=== PATIENT | male | born 1985 | race Hispanic/Latino ===

== ENCOUNTER 2018-06-04 07:16 | Emergency (ER) | payer SELFPAY ==
[2018-06-04 08:45] LABS: Absolute Lymphocytes (CBC) 1.9 K/uL (0.7-4.9); Absolute Monocytes 1.4 K/uL (0.1-1.3); Absolute Neutrophil 12.8 K/uL (1.8-8.0); Basophils % 0.4 % (0-1.3); Eosinophils % 1.6 % (0-4.4); Hematocrit 41.3 % (39.6-49.0); Lymphocytes % 11.4 % (15.3-44.8); MCH 31.5 pg (27.0-35.0); MCV 90.5 fL (80-100); MPV 11.1 fL (7.6-11.3); Monocytes % 8.5 % (3.3-12.3); RBC Red Blood Cell Count 4.57 M/uL (4.33-5.43)
--- NOTE | 2018-06-04 09:10 | RAD REPORT ---
EXAM DESCRIPTION: US - Scrotum Testicles - 06/04/2018 8:05 am CLINICAL HISTORY: left testicle swelling and pain COMPARISON: No comparisons FINDINGS: The right testicle 4.7 x 3.3 x 2.5 cm. No intratesticular masses or evidence of testicular torsion. The left testicle 4.3 x 3.1 x 2.6 cm. No intratesticular masses or evidence of testicular torsion. 9 mm left epididymal cyst. Echogenic material is present the left scrotal sac increased with Valsalva suspicious for a left ingu inal hernia. No worrisome fluid collections. IMPRESSION: No intratesticular mass or evidence of testicular torsion. Left inguinal hernia suspected.
[2018-06-04 09:13] LABS: ALT/SGPT 33 U/L (12-78); AST/SGOT 18 U/L (15-37); Albumin 3.7 g/dL (3.4-5.0); Alkaline Phosphatase 75 U/L (45-117); Amylase Level 40 U/L (25-115); BUN Blood Urea Nitrogen 10 mg/dL (7-18); Bicarbonate 26 mmol/L (21-32); Bilirubin Direct 0.3 mg/dL (0-0.2); Bilirubin Total 1.2 mg/dL (0.2-1.0); Glucose Level 88 mg/dL (74-106); Lipase 85 U/L (73-393); Potassium 3.8 mmol/L (3.5-5.1); Protein, Total 7.7 g/dL (6.4-8.2); Sodium Level 140 mmol/L (136-145)
--- NOTE | 2018-06-04 10:21 | RAD REPORT ---
EXAM DESCRIPTION: CTAbdomen Pelvis W Contrast - 06/04/2018 10:05 am CLINICAL HISTORY: Abdominal pain. left testicle pain/swelling COMPARISON: Scrotum Testicles dated 06/04/2018 TECHNIQUE: Biphasic CT imaging of the abdomen and pelvis was performed with 100 ml non-ionic IV cont rast. All CT scans are performed using dose optimization technique as appropriate and may include automated exposure control or mA/KV adjustment according to patient size. FINDINGS: The lung bases are clear. The liver, spleen, pancreas, adrenal glands and kidneys are within normal limits. No bowel obstruction, free air, free fluid or abscess. The appendix is normal. No evidence of signi ficant lymphadenopathy. No suspicious bony findings. Small fat containing left inguinal hernia. IMPRESSION: No acute intra-abdominal or pelvic finding. Small fat containing left inguinal hernia.
[2018-06-04 11:33] LABS: Urine Bacteria <20 /HPF (NONE SEEN); Urine Culture Reflex Order REFLEXED; Urine RBC <5 /HPF (NONE SEEN)
--- NOTE | 2018-06-04 11:57 | ER ---
Nurse's Notes [facility] Name: Katy Sepulveda III Age: 32 yrs Sex: Male : 1985 Arrival Date: 06/04/2018 Time: 07:19 Bed 14 Private MD: None, None Diagnosis: Inguinal hernia-Left;Urinary tract infection, site not specified Presentation: 06/04 07:24 Presenting complaint: Patient states: L testicular swelling and pain that began ss yesterday. Pt also reports burning with urination that began 2-3 days ago. Transition of care: patient was not received from another setting of care. Onset of symptoms was June 01, 2018. Risk Assessment: Do you want to hurt yourself or someone else? Patient reports no desire to harm self or others. Initial Sepsis Screen: Does the patient meet any 2 criteria? HR > 90 bpm. Does the patient have a suspected source of infection? Yes: Dysuria/Frequency/Urgency/UTI. Care prior to arrival: None. 07:24 Method Of Arrival: Ambulatory ss 07:24 Acuity: WEN 3 ss Historical: - Allergies: 07:28 No Known Drug Allergies; ss - Home Meds: 07:28 None [Active]; ss - PMHx: 07:28 None; ss - PSHx: 07:28 ankle; ss - Immunization history:: Adult Immunizations up to date. - Social history:: Smoking status: Patient uses tobacco products, smokes one-half pack cigarettes per day. - Ebola Screening: : Patient denies exposure to infectious person Patient denies travel to an Ebola-affected area in the 21 days before illness onset. Screenin:54 Abuse screen: Denies threats or abuse. Denies injuries from another. Nutritional ph screening: No deficits noted. Tuberculosis screening: No symptoms or risk factors identified. Fall Risk None identified. Assessment: 07:30 General: Appears in no apparent distress. comfortable, well groomed, Behavior is calm, ph cooperative, appropriate for age, Denies fever. Pain: Complains of pain in groin. Neuro: Level of Consciousness is awake, alert, obeys commands, Oriented to person, place, time, situation. Cardiovascular: Capillary refill < 3 seconds in bilateral fingers Patient's skin is warm and dry. Respiratory: Airway is patent Respiratory effort is even, unlabored, Respiratory pattern is regular, symmetrical. GI: Patient currently denies diarrhea, nausea, vomiting. : Reports burning with urination, pain in left scrotum. Derm: Skin is intact, is healthy with good turgor, Skin is pink, warm \T\ dry. Musculoskeletal: Circulation, motion, and sensation intact. Range of motion: intact in all extremities. 08:35 Reassessment: Patient appears in no apparent distress at this time. Patient and/or ph family updated on plan of care and expected duration. Pain level reassessed. Patient is alert, oriented x 3, equal unlabored respirations, skin warm/dry/pink. Pt resting quietly, awaiting CT scan. 10:00 Reassessment: Patient appears in no apparent distress at this time. Patient and/or ph family updated on plan of care and expected duration. Pain level reassessed. Patient is alert, oriented x 3, equal unlabored respirations, skin warm/dry/pink. 11:30 Reassessment: Patient appears in no apparent distress at this time. Patient and/or ph family updated on plan of care and expected duration. Pain level reassessed. Patient is alert, oriented x 3, equal unlabored respirations, skin warm/dry/pink. 12:52 Reassessment: Patient appears in no apparent distress at this time. Patient and/or ph family updated on plan of care and expected duration. Pain level reassessed. Patient is alert, oriented x 3, equal unlabored respirations, skin warm/dry/pink. Pt instructed to follow up w/ general surgeon and d/c home. Vital Signs: 07:24 BP 129 / 86; Pulse 106; Resp 17; Temp 97.0(TE); Pulse Ox 99% on R/A; Weight 113.4 kg; ss Height 5 ft. 10 in. (177.80 cm); Pain 8/10; 08:36 BP 118 / 78; Pulse 96; Resp 18; Pulse Ox 99% on R/A; ph 09:31 BP 114 / 68; Pulse 93; Resp 18; Pulse Ox 100% on R/A; dh3 11:00 BP 113 / 72; Pulse 91; Resp 18; Pulse Ox 99% on R/A; ph 12:30 BP 122 / 70; Pulse 87; Resp 18; Temp 97.9; Pulse Ox 99% on R/A; ph 07:24 Body Mass Index 35.87 (113.40 kg, 177.80 cm) ED Course: 07:19 Patient arrived in ED. sb2 07:19 None, None is Private Physician. sb2 07:19 Alba Alvarez, RN is Primary Nurse. ph 07:19 Jonny Mays PA is PHCP. cp 07:19 Jonny Dean MD is Attending Physician. cp 07:24 Arm band placed on right wrist. ss 07:27 Triage completed. ss 07:40 Patient taken to ultrasound. aa4 07:56 Patient has correct armband on for positive identification. Placed in gown. Bed in low ph position. Call light in reach. Side rails up X 1. Pulse ox on. NIBP on. Warm blanket given. 08:05 US Scrotum Testicles In Process Unspecified. EDMS 08:07 Ultrasound completed. Patient moved back from ultrasound. aa4 08:30 Missed attempt(s): 22 gauge in right forearm. Bleeding controlled, band aid applied, ph catheter tip intact. 08:33 Inserted saline lock: 20 gauge in right antecubital area, using aseptic technique. ph Blood collected. 10:03 CT completed. Patient tolerated procedure well. Patient moved to CT via wheelchair. Patient moved back from CT. 10:04 CT Abd/Pelvis - W/Contrast In Process Unspecified. EDMS 11:56 Kevin Hu MD is Referral Physician. cp 12:46 No provider procedures requiring assistance completed. IV discontinued, intact, ph bleeding controlled, No redness/swelling at site. Pressure dressing applied. Administered Medications: 12:44 Drug: Rocephin 1 grams Route: IV; Rate: bolus; Site: right antecubital; ph 12:45 Follow up: Response: No adverse reaction; IV Status: Completed infusion ph Outcome: 11:57 Discharge ordered by MD. cp 12:52 Patient left the ED. ph 12:52 Discharged to home ambulatory. ph 12:52 Condition: good 12:52 Discharge instructions given to patient, Instructed on discharge instructions, follow up and referral plans. medication usage, Demonstrated understanding of instructions, follow-up care, medications, Prescriptions given X 3. Signatures: Dispatcher [employer] MARTINM Myriam Torres Liana Colon aa4 Selena Childers RN RN Alba Alvarez RN RN ph PageJonny PA PA cp Herrera, Deanna 3 Shaunna Joel 2
--- NOTE | 2018-06-04 11:57 | EDPHYS ---
Physician Documentation [facility] Name: Katy Sepulveda III Age: 32 yrs Sex: Male : 1985 Arrival Date: 06/04/2018 Time: 07:19 Bed 14 Private MD: None, None ED Physician Jonny Dean HPI: 06/04 07:35 This 32 yrs old Male presents to ER via Ambulatory with complaints of Side cp Pain. 07:35 The patient presents with swelling, tenderness, that is moderate, of the left testicle, cp of the left inguinal area, urinary symptoms, dysuria. 07:35 Onset: The symptoms/episode began/occurred yesterday. Associated signs and symptoms: cp Pertinent negatives: abdominal pain, constipation, diarrhea, fever, hematuria, vomiting. Severity of symptoms: in the emergency department the symptoms are actually worse, mildly. Historical: - Allergies: 07:28 No Known Drug Allergies; ss - Home Meds: 07:28 None [Active]; ss - PMHx: 07:28 None; ss - PSHx: 07:28 ankle; ss - Immunization history:: Adult Immunizations up to date. - Social history:: Smoking status: Patient uses tobacco products, smokes one-half pack cigarettes per day. - Ebola Screening: : Patient denies exposure to infectious person Patient denies travel to an Ebola-affected area in the 21 days before illness onset. ROS: 07:45 Constitutional: Negative for body aches, chills, fever, poor PO intake. cp 07:45 Eyes: Negative for injury, pain, redness, and discharge. cp 07:45 ENT: Negative for drainage from ear(s), ear pain, sore throat, difficulty swallowing, difficulty handling secretions. 07:45 Cardiovascular: Negative for chest pain, edema, palpitations. 07:45 Respiratory: Negative for cough, shortness of breath, wheezing. 07:45 Abdomen/GI: Negative for abdominal pain, nausea, vomiting, and diarrhea, constipation, black/tarry stool, rectal bleeding. 07:45 : Positive for burning with urination, testicular pain Negative for flank pain. 07:45 Skin: Negative for cellulitis, rash. 07:45 Neuro: Negative for altered mental status, headache, numbness, tingling, weakness. 07:45 All other systems are negative. Exam: 07:52 Head/Face: Normocephalic, atraumatic. cp 07:52 Constitutional: The patient appears in no acute distress, alert, awake, non-toxic, well developed, well nourished. 07:52 Eyes: Periorbital structures: appear normal, Conjunctiva: normal, no exudate, no cp injection, Sclera: no appreciated abnormality, Lids and lashes: appear normal, bilaterally. 07:52 ENT: External ear(s): are unremarkable, Nose: is normal, Mouth: Lips: moist, Oral mucosa: pink and intact, moist, Posterior pharynx: is normal, airway is patent, no erythema, no exudate. 07:52 Chest/axilla: Inspection: normal, Palpation: is normal, no crepitus, no tenderness. 07:52 Cardiovascular: Rate: tachycardic, Rhythm: regular. 07:52 Respiratory: the patient does not display signs of respiratory distress, Respirations: normal, no use of accessory muscles, no retractions, no splinting, no tachypnea, labored breathing, is not present, Breath sounds: are clear throughout, no decreased breath sounds, no stridor, no wheezing. 07:52 Abdomen/GI: Inspection: abdomen appears normal, Bowel sounds: active, all quadrants, Palpation: soft, in all quadrants, nontender, in all quadrants, involuntary guarding, is not appreciated. 07:52 Back: pain, is absent, ROM is normal. 07:52 : Male external genitalia: Circumcision noted. swelling: is noted in the left inguinal area, that is moderate, tenderness, is palpated in the left inguinal area, that is moderate, Sexual behavior: the patient is sexually active, and reports a single partner. 07:52 Skin: cellulitis, is not appreciated, no rash present. Vital Signs: 07:24 BP 129 / 86; Pulse 106; Resp 17; Temp 97.0(TE); Pulse Ox 99% on R/A; Weight 113.4 kg; ss Height 5 ft. 10 in. (177.80 cm); Pain 8/10; 08:36 BP 118 / 78; Pulse 96; Resp 18; Pulse Ox 99% on R/A; ph 09:31 BP 114 / 68; Pulse 93; Resp 18; Pulse Ox 100% on R/A; dh3 11:00 BP 113 / 72; Pulse 91; Resp 18; Pulse Ox 99% on R/A; ph 12:30 BP 122 / 70; Pulse 87; Resp 18; Temp 97.9; Pulse Ox 99% on R/A; ph 07:24 Body Mass Index 35.87 (113.40 kg, 177.80 cm) ss MDM: 07:19 Patient medically screened. 09:00 Differential diagnosis: appendicitis, UTI, prostatitis, urethritis, hernia, orchitis, cp epididymitis. 11:05 Physician consultation: Kevin Hu MD was called at 11:00, was contacted at 11:00, regarding patient's condition, outpatient follow-up, and will see patient in office. 11:55 Data reviewed: vital signs, nurses notes, lab test result(s), radiologic studies, CT cp scan, ultrasound, and as a result, I will discharge patient. 11:55 Counseling: I had a detailed discussion with the patient and/or guardian regarding: the cp historical points, exam findings, and any diagnostic results supporting the discharge/admit diagnosis, lab results, radiology results, the need for outpatient follow up, a general surgeon, to return to the emergency department if symptoms worsen or persist or if there are any questions or concerns that arise at home. Response to treatment: the patient's symptoms have markedly improved after treatment, and as a result, I will discharge patient. 06/04 07:35 Order name: Urine Microscopic Only; Complete Time: 11:52 06/04 11:52 Interpretation: Normal except: UWBC 20-50. 06/04 08:12 Order name: Amylase, Serum; Complete Time: 09:14 06/04 08:12 Order name: Basic Metabolic Panel; Complete Time: 09:14 cp 06/04 08:12 Order name: CBC with Diff; Complete Time: 09:14 cp 06/04 09:15 Interpretation: Normal except: WBC 16.5; LOUIS% 78.1; LYM% 11.4; NEUT A 12.8; MNA 1.4. 06/04 08:12 Order name: Creatinine for Radiology; Complete Time: 09:14 cp 06/04 08:12 Order name: Hepatic Function; Complete Time: 09:14 cp 06/04 09:15 Interpretation: Normal except: BILIT 1.2; BILID 0.3; GLOB 4.0; A/G 0.9. cp 06/04 07:35 Order name: US Scrotum Testicles; Complete Time: 09:14 06/04 10:42 Interpretation: Report reviewed. 06/04 07:35 Order name: Urine Dipstick-Ancillary (obtain specimen); Complete Time: 11:52 cp 06/04 08:12 Order name: Lipase; Complete Time: 09:14 cp 06/04 08:12 Order name: IV Saline Lock; Complete Time: 08:33 cp 06/04 08:14 Order name: CT Abd/Pelvis - W/Contrast; Complete Time: 10:36 cp 06/04 11:34 Order name: Urine Culture [facility] 06/04 11:56 Order name: Urine Dipstick--Ancillary (enter results) 06/04 08:12 Order name: Labs collected and sent; Complete Time: 08:33 cp Administered Medications: 12:44 Drug: Rocephin 1 grams Route: IV; Rate: bolus; Site: right antecubital; ph 12:45 Follow up: Response: No adverse reaction; IV Status: Completed infusion ph Disposition: 15:20 Co-signature as Attending Physician, Jonny Dean MD I agree with the assessment and pepe plan of care. Disposition: 06/04/18 11:57 Discharged to Home. Impression: Inguinal hernia - Left, Urinary tract infection, site not specified. - Condition is Stable. - Discharge Instructions: Urinary Tract Infection, Adult, Inguinal Hernia, Adult. - Prescriptions for Tramadol 50 mg Oral Tablet - take 1 tablet by ORAL route every 8 hours as needed; 20 tablet. Cipro 500 mg Oral Tablet - take 1 tablet by ORAL route every 12 hours for 10 days; 20 tablet. Zofran 4 mg Oral Tablet - take 1 tablet by ORAL route every 12 hours As needed; 20 tablet. - Work release form, Medication Reconciliation Form, Thank You Letter, Antibiotic Education, Prescription Opioid Use form. - Follow up: Kevin Hu MD; When: 1 - 2 days; Reason: left inguinal hernia. - Problem is new. - Symptoms have improved. Signatures: Dispatcher [employer] [facility] Jonny Dean MD MD cha Smirch, Shelby, RN RN Alba Alvarez RN RN ph Jonny Mays, BAN CEVALLOS cp Corrections: (The following items were deleted from the chart) 09:15 09:15 Normal except: WBC 16.5; LOUIS% 78.1; LYM% 11.4; NEUT A 12.8. cp cp 12:52 11:57 06/04/2018 11:57 Discharged to Home. Impression: Inguinal hernia - Left; Urinary ph tract infection, site not specified. Condition is Stable. Forms are Medication Reconciliation Form, Thank You Letter, Antibiotic Education, Prescription Opioid Use. Follow up: Kevin Hu; When: 1 - 2 days; Reason: left inguinal hernia. Problem is new. Symptoms have improved. cp
[2018-06-04 12:40] LABS: Urine Blood TRACE (NEG); Urine Glucose NEGATIVE (NEG); Urine Protein 1+ (NEG); Urine Specific Gravity 1.015 (1.005-1.030)
[2018-06-04] MEDS ORDERED: CEFTRIAXONE/SWI 1gm 1 GM/10 ML SYR ONE (12:43)
== END 2018-06-04 12:52 | disposition home or self-care (01) ==
LOC: ER 07:16
DX: K40.90 Unilateral inguinal hernia, without obstruction or gangrene, not specified as recurrent (principal); N39.0 Urinary tract infection, site not specified; F17.210 Nicotine dependence, cigarettes, uncomplicated
CPT/HCPCS: 36415; 74177; 76870; 80048; 80076; 81003; 81015; 82150; 83690; 85025; 87086; 87088; 96374; 99284; J0696; Q9967

== ENCOUNTER 2018-06-26 08:23 | Day surgery (SDC) | payer SELFPAY ==
[~2018-06-26 08:23] MED LIST: CEFAZOLIN/SWI 1gm 1 GM/10 ML SYR ONE; CEFAZOLIN/SWI 2gm 2 GM/20 ML SYR IVP SCH; Ringers Lactate 1,000 ML IV ONE; SCOPOLAMINE HYDROBROMIDE PATCH TD ONE
--- OUTSIDE RECORDS SUMMARY | 2018-06-26 08:28 | XMS REPORT ---
:1985 Author Organization [employer] Care Team Providers Name Role Phone Kevin Hu Provider Role Unavailable Allergies, Adverse Reactions, Alerts Substance Reaction Event Type Vicks VapoRub Info Not Available Drug Allergy Problems Problem Type Condition Code Onset Dates Condition Status Assessment Left inguinal hernia K40.90 Active Medications No Known Medications Results No Known Results Summary Purpose [employer] Submission
--- OUTSIDE RECORDS SUMMARY | 2018-06-26 08:28 | XMS REPORT ---
:1985 Author Organization [employer] Care Team Providers Name Role Phone Kevin Hu Provider Role Unavailable Allergies No Known Allergies Problems No Known Problems Medications No Known Medications Results No Known Results Summary Purpose [employer] Submission
[2018-06-26] MEDS ORDERED: Ringers Lactate 1,000 ML IV ONE (08:41)
[2018-06-26] MEDS ORDERED: LIDOCAINE 1% MPF 5 ML VIAL ONE (09:08)
[2018-06-26] MEDS ORDERED: PROPOFOL 200 MG/20 ML VIAL IV ONE (09:08)
[2018-06-26] MEDS ORDERED: MIDAZOLAM HCL 2 MG/2 ML INJ ONE (09:08)
[2018-06-26] MEDS ORDERED: FENTANYL CITR 100 MCG/2 ML ONE ×2 (09:08→11:01)
[2018-06-26] MEDS ORDERED: BUPIVACA 0.25%/EPI 0.0005% MDV 50 ML VIAL ONE (09:13)
[2018-06-26] MEDS ORDERED: KETOROLAC 30 MG/ML INJ ONE (11:00)
[2018-06-26] MEDS ORDERED: ONDANSETRON HCL 40 MG/20 ML VIAL ONE (11:01)
--- NOTE | 2018-06-26 11:15 | P.OP ---
[employer] Operator: LEEANN FERRO Preoperative diagnosis: LEFT inguinal hernia Postoperative diagnosis: LEFT inguinal hernia Primary procedure: LEFT Direct inguinal hernia Anesthesia: GETA + Local Estimated blood loss: <10cc Specimen: Cord Lipoma Findings: Large LEFT inguinal hernia, ext oblique aponeurosis thin, friable Complications: None Implants: bard plug and patch repair system Transferred to: Recovery Room Condition: Good
[2018-06-26] MEDS ORDERED: HYDROCODONE/APAP 5/325 MG TAB ONE (12:37)
--- NOTE | 2018-06-26 22:31 | OP ---
Date of Procedure: 06/26/2018 Surgeon: Kevin Hu MD, Preoperative Diagnosis: Left inguinal hernia. Postoperative Diagnosis: Left inguinal hernia. Procedure Performed: Left direct inguinal hernia repair with mesh. Anesthesia: General endotracheal plus local with 0.25% Marcaine. Estimated Blood Loss: Less than 10 cc. Specimen: Cord lipoma. Findings: A large left inguinal hernia of a direct type. The external oblique aponeurosis was thin and friable. Complications: None. Implants: Bard plug and patch medium hernia repair system used. Disposition: Transferred to recovery room in good condition. Procedure In Detail: After informed consent was obtained, the patient brought to the operating room, prepped and draped in the usual sterile fashion. After adequate anesthesia was achieved, an area ov er the left inguinal area was anesthetized with 0.25% Marcaine, sharply incised, and dissection marivel nued down through the Camper's fat and Ange's fascia to expose the external oblique aponeurosis. T he external oblique aponeurosis was found to be thin, friable and evidently damaged from the underlyi ng hernia as it was quite thin as described. This was opened up in its entirety using Metzenbaum sci ssors protecting the ilioinguinal nerve. Dissection continued down to expose the spermatic cord and structures. The spermatic cord structures had a somewhat thicker cremasteric muscle fibers than woul d normally be encountered during the dissection; however, the cord structures were encircled with a P enrose drain and dissection from the tissues was quite easy at this time. A cord lipoma was identifi ed and this was skeletonized and removed from the cord structures, this was found to be a direct monroe ia and as such the floor had sustained some significant injury from the hernia itself. Dissection co ntinued down to expose the superficial and deep inguinal rings and the area was inspected in its enti rety. The deep inguinal ring had some preperitoneal fat protruding as well, this was dissected free around circumferentially and the hernia sac was opened, and the plug system of a medium-sized Bard sy nthetic plug system was then placed in the preperitoneal space and secured using 2 interrupted 0 PDS sutures protecting the cord structures throughout. The plug system was unfurled in the preperitoneal space using digital manipulation quite easily and it was in good position at the end of procedure. The mesh patch system was then brought up, sized appropriately, trimmed, and positioned to reconstruc t the floor of the inguinal canal. It was secured to the medial and lateral shelving edges and to th e pubic fascia over the pubic tubercle using 0 PDS suture in an interrupted fashion both on the media l and lateral aspects. The inguinal ring was also reconstituted sewing the patch to itself with the 0 PDS with good approximation of tissues. The area was copiously irrigated multiple times. There we re no additional hemostatic maneuvers at that time required. The Camper's fat, Ange's fascia, and external oblique aponeurosis were closed en bloc over the anterior surface of the spermatic cord and structures. With good approximation of the tissue, the area was copiously irrigated once again. The subcutaneous tissues were then closed using the same said 3-0 Vicryl in an interrupted fashion. The skin was closed with a 4-0 Monocryl in a running fashion. Dermabond was placed over top. The patie nt tolerated the procedure well without evidence of complication, transferred to the PACU in good con dition. All counts were correct at the end of the case. TANI/JEN Voice ID: [id number] Report ID: [id number]
== END 2018-06-26 14:00 | disposition home or self-care (01) ==
LOC: OR 08:23
PROVIDERS: ATTEND Surgery
PROC: 0YU60JZ Supplement Left Inguinal Region with Synthetic Substitute, Open Approach (ICD-10-PCS; principal; 2018-06-26 10:30)
DX: K40.90 Unilateral inguinal hernia, without obstruction or gangrene, not specified as recurrent (principal); J45.909 Unspecified asthma, uncomplicated; Z88.8 Allergy status to other drugs, medicaments and biological substances; F17.200 Nicotine dependence, unspecified, uncomplicated; E66.9 Obesity, unspecified; Z68.35 Body mass index [BMI] 35.0-35.9, adult
CPT/HCPCS: 88302; J0690; J2250; J2405; J3010